=== PATIENT | female | born 1985 | race Caucasian/White ===

== ENCOUNTER 2018-05-11 10:40 | Emergency (ER) | payer OTHER ==
[2018-05-11 10:50] VITALS: BP 137/91; TEMP 97.7; BMI 31.8
[2018-05-11] MEDS ORDERED: TORADOL IM STA (12:13)
--- NOTE | 2018-05-11 12:14 | ED.PDOC ---
General ED Provider: Dr. HOLLAND SANTIAGO Chief Complaint: Headache Stated Complaint: Headache. Onset after eatting dinner Saturay Evening. Involving LT occipital -temporal region and has progressed to the neck, jaw and bilat shoulders with associated nausea. Recently tx for Strep Throat. Time Seen by Physician: 11:50 Mode of Arrival: Walk-In Information Source: Patient Exam Limitations: No limitations Primary Care Provider: HOLLAND MCKEON Nursing and Triage Documentation Reviewed and Agree: Yes Does patient meet sepsis criteria?: No System Inflammatory Response Syndrome: Not Applicable Sepsis Protocol: For patient's 13 years and over: Temp is 96.8 and below OR 101 and greater Pulse >90 BPM Resp >20/minute Acutely Altered Mental Status Are patient's symptoms suggestive of a new infection, such as: -Pneumonia -Skin, Soft Tissue -Endocarditis -UTI -Bone, Joint Infection -Implantable Device -Acute Abdominal Infection -Wound Infection -Meningitis -Blood Stream Catheter Infection -Unknown Neurological Complaint Exam - Headache Complaint/Exam Onset: Sudden Duration: 1 day Symptoms Are: Still present Timing: Constant Episodes Lasting: Hours Worst Headache Ever: No Initial Severity: Severe Current Severity: Moderate Location: Left, Temporal, Occipital Character: Reports: Sharp, Pressure Aggravating: Reports: Position change. Denies: Exertion, Bright lights Alleviating: Reports: Rest Associated Signs and Symptoms: Reports: Nausea. Denies: Dizziness, Seizure, Vomiting, Sinus pressure, Fever, Neck pain, Neck stiffness, Decreased LOC, Visual changes Related History: Denies: Similar episode Related Surgical History: Reports: None SAH Risk Factors: Reports: None Meningitis Risk Factors: Reports: None SDH Risk Factors: Reports: None Temporal Arteritis Risk Factors: Reports: None Normal Head CT Within Last 12 Months: No Fundoscopic Exam: Present: Normal Findings Papilledema Present: No Temporal Artery Tenderness: Present: None Sinus Tenderness: Present: None TMJ Tenderness: Present: None Meningeal Signs Positive: No Pain on Passive Flexion-Positive Kernig's: No ROM Limited In: No Limitiations Focal Weakness: Present: None Focal Sensory Loss: Present: None Gait: Normal Nystagmus Present: No Gag Reflex Present: Yes [id number]: Normal Findings Babinski Sign: Negative Right, Negative Left Heel to Toe Normal: No Review of Systems - Review Of Systems Constitutional: Reports: No symptoms Eyes: Reports: No symptoms Ears, Nose, Mouth, Throat: Reports: No symptoms, Throat pain Respiratory: Reports: No symptoms Cardiac: Reports: No symptoms GI: Reports: No symptoms : Reports: No symptoms Musculoskeletal: Reports: Muscle stiffness, Neck pain Skin: Reports: No symptoms Neurological: Reports: No symptoms Endocrine: Reports: No symptoms Hematologic/Lymphatic: Reports: No symptoms All Other Systems: Reviewed and Negative Past Medical History - Past Medical History Previously Healthy: Yes Endocrine: Reports: None Cardiovascular: Reports: None Respiratory: Reports: None Hematological: Reports: None Gastrointestinal: Reports: None Genitourinary: Reports: None Neuro/Psych: Reports: None Musculoskeletal: Reports: None Cancer: Reports: None Last Menstrual Period: 2 WEEKS - Surgical History General Surgical History: Reports: Unknown - Family History Family History: Reports: Unknown - Social History Smoking Status: Former smoker Hx Substance Use: No Alcohol Screening: None Physical Exam - Physical Exam Appearance: Well-appearing, No pain distress, Well-nourished Ill-appearing: None Pain Distress: None Eyes: SHIV, EOMI, Conjunctiva clear ENT: Ears normal, Nose normal, Oropharynx normal Respiratory: Airway patent, Breath sounds clear, Breath sounds equal, Respirations nonlabored Cardiovascular: RRR, Pulses normal, No rub, No murmur GI/: Soft, Nontender, No masses, Bowel sounds normal, No Organomegaly Musculoskeletal: Normal strength, ROM intact, No edema, No calf tenderness Skin: Warm, Dry, Normal color Neurological: Sensation intact, Motor intact, Reflexes intact, Cranial nerves intact, Alert, Oriented Psychiatric: Affect appropriate, Mood appropriate Critical Care Note - Critical Care Note Total Time (mins): 0 Course - Course Hematology/Chemistry: 05/11/18 12:20 05/11/18 12:20 Orders, Labs, Meds: Lab Review 05/11/18 05/11/18 05/11/18 12:20 12:20 12:45 WBC 7.05 RBC 4.67 Hgb 14.3 Hct 40.6 MCV 86.9 MCH 30.6 MCHC 35.2 RDW Coeff of Kirill 12.0 Plt Count 324 Immature Gran % (Auto) 0.3 Neut % (Auto) 62.2 Lymph % (Auto) 31.5 Hays % (Auto) 5.5 Eos % (Auto) 0.1 Baso % (Auto) 0.4 Immature Gran # (Auto) 0.0 Neut # (Auto) 4.4 Lymph # (Auto) 2.2 Hays # (Auto) 0.4 Eos # (Auto) 0.0 Baso # (Auto) 0.0 ESR 8 Sodium 136.0 Potassium 4.04 Chloride 103.7 Carbon Dioxide 24.8 Anion Gap 11.54 BUN 9.6 Creatinine 0.57 L Estimated GFR (MDRD) 121.00 BUN/Creatinine Ratio 16.84 Glucose 97.1 Calcium 9.13 Magnesium 1.92 Total Bilirubin 0.35 AST 27.7 ALT 15.0 Alkaline Phosphatase 50.6 Total Creatine Kinase 36.5 Troponin I < 0.012 Total Protein 7.60 Albumin 4.51 Globulin 3.09 Albumin/Globulin Ratio 1.45 Urine Color Urine Clarity Urine pH Ur Specific Wheeler Urine Protein Urine Glucose (UA) Urine Ketones Urine Blood Urine Nitrite Urine Bilirubin Urine Urobilinogen Ur Leukocyte Esterase Urine Microscopic RBC Urine Microscopic WBC Ur Squamous Epith Cells Urine Bacteria Urine Test Influ A Molecular Assay Influ B Molecular Assay RSV Antigen Negative by naat 05/11/18 05/11/18 05/11/18 12:45 12:45 12:45 WBC RBC Hgb Hct MCV MCH MCHC RDW Coeff of Kirill Plt Count Immature Gran % (Auto) Neut % (Auto) Lymph % (Auto) Hays % (Auto) Eos % (Auto) Baso % (Auto) Immature Gran # (Auto) Neut # (Auto) Lymph # (Auto) Hays # (Auto) Eos # (Auto) Baso # (Auto) ESR Sodium Potassium Chloride Carbon Dioxide Anion Gap BUN Creatinine Estimated GFR (MDRD) BUN/Creatinine Ratio Glucose Calcium Magnesium Total Bilirubin AST ALT Alkaline Phosphatase Total Creatine Kinase Troponin I Total Protein Albumin Globulin Albumin/Globulin Ratio Urine Color Yellow Urine Clarity Clear Urine pH 6.0 Ur Specific Wheeler 1.010 Urine Protein Negative Urine Glucose (UA) Negative Urine Ketones 1+ Urine Blood 2+ Urine Nitrite Negative Urine Bilirubin Negative Urine Urobilinogen 0.2 Ur Leukocyte Esterase Trace Urine Microscopic RBC 2-5 Urine Microscopic WBC 0-2 Ur Squamous Epith Cells 2-5 Urine Bacteria Trace Urine Test Negative Influ A Molecular Assay Negative by naat Influ B Molecular Assay Negative by naat RSV Antigen Orders Category Date Time Status EKG-(ED ONLY) Stat CARDIO 05/11/18 12:11 Completed CBC W/ AUTO DIFF Stat LAB 05/11/18 12:20 Completed COMPREHENSIVE METABOLIC PANEL Stat LAB 05/11/18 12:20 Completed CPK [CREATINE KINASE] Stat LAB 05/11/18 12:20 Completed ESR Stat LAB 05/11/18 12:20 Completed FLU A & B MOLECULAR [FLU A/B MOLECULAR] Stat LAB 05/11/18 12:45 Completed MAGNESIUM Stat LAB 05/11/18 12:20 Completed RAPID STREP SCREEN [MOLECULAR GROUP A STREP] Stat LAB 05/11/18 12:45 Completed RSV Stat LAB 05/11/18 12:45 Completed TROPONIN I Stat LAB 05/11/18 12:20 Completed UA [URINALYSIS C & S IF INDICATED] Stat LAB 05/11/18 12:45 Completed URINE Stat LAB 05/11/18 12:45 Completed Ketorolac Tromethamine [Toradol] MEDS 05/11/18 12:13 Discontinued 30 mg IM ONCE STA Methylprednisolone Sod Succ/Pf [Solu-Medrol 125 mg] MEDS 05/11/18 14:22 Discontinued 125 mg IM ONCE STA Nalbuphine HCl [Nubain] MEDS 05/11/18 13:33 Discontinued 10 mg IM ONCE STA CT HEAD W/O CONTRAST Stat RADS 05/11/18 12:[address] SINUSES W/O CONTRAST Stat RADS 05/11/18 12:12 Completed Medications Discontinued Medications Generic Name Dose Route Start Last Admin Trade Name Freq PRN Reason Stop Dose Admin Ketorolac Tromethamine 30 mg 05/11/18 12:13 05/11/18 12:47 Toradol IM 05/11/18 12:14 30 mg ONCE STA Administration Methylprednisolone Sodium Succinate 125 mg 05/11/18 14:22 05/11/18 14:30 Solu-Medrol 125 Mg IM 05/11/18 14:23 125 mg ONCE STA Administration Nalbuphine HCl 10 mg 05/11/18 13:33 05/11/18 13:44 Nubain IM 05/11/18 13:34 10 mg ONCE STA Administration Vital Signs: Temp Pulse Resp BP Pulse Ox 05/11/18 10:42 97.7 F 92 H 16 137/91 H 98 Departure - Departure Time of Disposition: 15:50 Disposition: HOME SELF-CARE Discharge Problem: Muscle contraction headache, Sinusitis chronic, sphenoidal Instructions: Sinusitis (ED) Condition: Good Pt referred to PMD for follow-up: Yes IPMP verified?: No Additional Instructions: Apply warm moist heat to neck for 20 minutes twice daily Take meds as directed Prescriptions: Orphenadrine Citrate 100 mg PO BID #10 tablet.er Prednisone 10 mg PO DAILY #12 tablet Allergies/Adverse Reactions: Allergies Sulfa (Sulfonamide Antibiotics) Adverse Reaction (Verified 05/11/18 10:41) Home Medications: Ambulatory Orders Norgestimate-Ethinyl Estradiol [Ortho Tri-Cyclen Lo Tablet] 1 each PO DAILY Amoxicillin 875 mg PO Q12H 05/11/18 Orphenadrine Citrate 100 mg PO BID #10 tablet.er 05/11/18 Prednisone 10 mg PO DAILY #12 tablet 05/11/18 Disposition Discussed With: Patient
[2018-05-11 13:06] LABS: URINE PREGNANCY TEST NEGATIVE (NEGATIVE)
[2018-05-11] MEDS ORDERED: NUBAIN IM STA (13:33)
--- NOTE | 2018-05-11 13:43 | CT ---
EXAM: CT of the head without contrast History: Headache. Technique: Multiplanar CT images through the head were obtained without the administration of IV con trast Findings: Air-fluid level within the right sphenoid sinus. Mucosal thickening of the right maxillar y sinus. The visualized mastoid air cells are clear in general. No acute calvarial abnormalities. Intracranially there is mild frontal atrophy. No dominant mass or midline shift. No hydrocephalous. No acute intracranial hemorrhage or abnormal extraaxial fluid collections. Impression: 1. No acute intracranial process. 2. Mild frontal brain atrophy. 3. Acute right sphenoid sinusitis
--- NOTE | 2018-05-11 13:50 | CT ---
EXAM: CT PARANASAL SINUSES HISTORY: Headache TECHNIQUE: CT paranasal sinuses without contrast. Detailed axial sections. Coronal and sagittal re formations. FINDINGS: No comparison. The frontal sinuses may have minimal mucosal thickening. Ethmoid sinuses are grossly clear. The right sphenoid sinus has fluid within its dependent portion. Maxillary sinuses have moderate mucosal thickening in the bases. Findings suggestive of previous sinus surgery, correlate with records. Nasal septum is midline. The nasal turbinates are within normal limits. There appears to be a tiny left mastoid process effusion . IMPRESSION: 1. Moderate acute on chronic paranasal sinusitis. 2. Tiny left mastoid process effusion.
[2018-05-11] MEDS ORDERED: SOLU-MEDROL 125 MG IM STA (14:22)
== END 2018-05-11 16:26 | disposition home or self-care (01) ==
LOC: ED 10:40
DX: G44.209 Tension-type headache, unspecified, not intractable (principal); J32.3 Chronic sphenoidal sinusitis
CPT/HCPCS: 36415; 80053; 81001; 81025; 82550; 83735; 84484; 85025; 85651; 87502; 87651; 87801; 93005; 93010; 96372; 99283